=== PATIENT | female | born 1965 | race Caucasian/White ===

== ENCOUNTER 2016-09-12 14:09 | Emergency (ER) | payer MEDICAID ==
[~2016-09-12] VITALS: Ht 152.4 cm; Wt 78.0 kg
[2016-09-12 14:26] VITALS: BP 148/91
[2016-09-12] MEDS ORDERED: AMLO5TAB4 PO (14:27)
[2016-09-12] MEDS ORDERED: SODIUM CHLORIDE 0.9% 1,000 ML IV ONE (15:57)
[2016-09-12] MEDS ORDERED: ONDANSETRON HCL 4MG/2ML VIAL IV ONE (16:00)
[2016-09-12] MEDS ORDERED: MECLIZINE 25MG TABLET PO ONE (16:00)
== END 2016-09-12 19:00 | disposition left against medical advice (07) ==
LOC: ER 15:31 → CANBEDREQ 20:49
DX: R42 Dizziness and giddiness (principal); Z53.21 Procedure and treatment not carried out due to patient leaving prior to being seen by health care provider
CPT/HCPCS: J7030